=== PATIENT | male | born 1980 | race Caucasian/White ===

== ENCOUNTER 2022-12-23 18:26 | Emergency (ER) | payer SELFPAY ==
--- NOTE | 2022-12-23 20:41 | EDPHYS ---
Physician Documentation [facility] Name: Ollie Cordero II Age: 42 yrs Sex: Male : 1980 Arrival Date: 12/23/2022 Time: 18:26 Bed 12 Private MD: ED Physician Zeb Camacho HPI: 12/23 20:20 This 42 yrs old Male presents to ER via Ambulatory with complaints of Flu Symptoms. kb 20:20 The patient or guardian reports cough, that is intermittent, described as moderate, flu kb symptoms, low-grade fever, myalgias. Onset: The symptoms/episode began/occurred 3 day(s) ago. Severity of symptoms: At their worst the symptoms were mild, in the emergency department the symptoms are unchanged. Modifying factors: The symptoms are alleviated by nothing, the symptoms are aggravated by nothing. Associated signs and symptoms: Pertinent positives: rhinorrhea, sore throat, Pertinent negatives: chest pain, diarrhea, ear ache, fever, nausea, vomiting. The patient has not experienced similar symptoms in the past. The patient has not recently seen a physician. Historical: - Allergies: 18:37 PENICILLINS; ap3 - PMHx: 18:37 hep C; chronic pancreatitis; ap3 - Immunization history:: Client reports having NOT received the Covid vaccine. - Social history:: Smoking status: Patient reports use of chewing tobacco. Patient uses alcohol, occasionally. ROS: 20:19 Abdomen/GI: Negative for abdominal pain, nausea, vomiting, diarrhea, and constipation. kb 20:19 Constitutional: Positive for body aches, chills, fatigue, malaise. 20:19 ENT: Positive for rhinorrhea, sinus congestion, sore throat. 20:19 Respiratory: Positive for cough. 20:19 Neuro: Positive for headache. 20:19 All other systems are negative. Exam: 20:19 Constitutional: This is a well developed, well nourished patient who is awake, alert, kb and in no acute distress. Head/Face: Normocephalic, atraumatic. ENT: Moist Mucous membranes Cardiovascular: Regular rate and rhythm with a normal S1 and S2. No gallops, murmurs, or rubs. No pulse deficits. Respiratory: Respirations even and unlabored. No increased work of breathing. Talking in full sentences Abdomen/GI: Soft, non-tender. No distention Skin: Warm, dry with normal turgor. Normal color. MS/ Extremity: Pulses equal, no cyanosis. Neurovascular intact. Full, normal range of motion. Neuro: Awake and alert, GCS 15, oriented to person, place, time, and situation. Moves all extremities. Normal gait. Vital Signs: 18:36 BP 136 / 92; Pulse 92; Resp 18; Temp 97.9; Pulse Ox 97% ; Weight 90.72 kg; Pain 9/10; ap3 20:48 BP 128 / 71; Pulse 88; Resp 16; Pulse Ox 100% on R/A; mb9 18:36 Pain Scale: Adult ap3 MDM: 18:30 Patient medically screened. kb 20:19 Differential Diagnosis: Viral Syndrome Pneumonia Other flu, covid, uri, strep. Data kb reviewed: vital signs, nurses notes. Test considered but Not performed: X-ray: chest x-ray considered, but lungs are clear bilaterally, resp even and unlabore.. Counseling: I had a detailed discussion with the patient and/or guardian regarding: the historical points, exam findings, and any diagnostic results supporting the discharge/admit diagnosis, lab results, the need for outpatient follow up, a family practitioner, to return to the emergency department if symptoms worsen or persist or if there are any questions or concerns that arise at home. 12/23 18:35 Order name: Flu; Complete Time: 20:45 kb 12/23 18:35 Order name: SARS-COV-2 RT PCR; Complete Time: 20:45 kb 12/23 18:35 Order name: Strep 12/23 19:48 Order name: Throat Culture EDMS Administered Medications: No medications were administered Disposition: 20:46 Co-signature as Attending Physician, Zeb NICK was immediately available on-site ms3 in the Emergency Department for consultation in the care of the patient. Disposition Summary: 12/23/22 20:41 Discharge Ordered Location: Home kb Condition: Stable kb Diagnosis - SARS-associated coronavirus as the cause of diseases classified elsewhere kb Followup: kb - With: Emergency Department - When: As needed - Reason: Worsening of condition Followup: kb - With: Private Physician - When: 2 - 3 days - Reason: Recheck today's complaints, Continuance of care, Re-evaluation by your physician Discharge Instructions: - COVID-19 kb - Viral Illness, Adult kb - Discharge Summary Sheet mb9 Forms: - Medication Reconciliation Form kb - Thank You Letter kb - Antibiotic Education kb - Prescription Opioid Use kb - Patient Portal Instructions kb - Leadership Thank You Letter kb - Work release form mb9 Prescriptions: - albuterol sulfate 90 mcg/actuation Inhalation HFA Aerosol Inhaler - inhale 2 puff by INHALATION route every 4 to 6 hours As needed; 1 unit; kb Refills: 0, Product Selection Permitted Signatures: Dispatcher [employer] EDEusebia Salinas FNP-C FNP-Ckb Prokisch, Amanda, RN RN ap3 Zbe Camacho DO DO ms3 Corrections: (The following items were deleted from the chart) 18:38 18:37 Allergies: No Known Allergies; ap3 ap3
--- NOTE | 2022-12-23 20:41 | ER ---
Nurse's Notes [facility] Name: Ollie Cordero II Age: 42 yrs Sex: Male : 1980 Arrival Date: 12/23/2022 Time: 18:26 Bed 12 Private MD: Diagnosis: SARS-associated coronavirus as the cause of diseases classified elsewhere Presentation: 12/23 18:36 Chief complaint: Patient states: patient states he started having throat pain, chest ap3 pain, body aches and a cough approx 3 days ago after being exposed to COVID. Coronavirus screen: Client presents with at least one sign or symptom that may indicate coronavirus-19. Ebola Screen: No symptoms or risks identified at this time. Initial Sepsis Screen: Does the patient meet any 2 criteria? No. Patient's initial sepsis screen is negative. Does the patient have a suspected source of infection? No. Patient's initial sepsis screen is negative. Risk Assessment: Do you want to hurt yourself or someone else? Patient reports no desire to harm self or others. Onset of symptoms was December 20, 2022. 18:36 Method Of Arrival: Ambulatory ap3 18:36 Acuity: KELY 4 ap3 Triage Assessment: 18:38 General: Appears ill, Behavior is cooperative, appropriate for age. Pain: Complains of ap3 pain in generalized body aches Pain currently is 9 out of 10 on a pain scale. Neuro: Level of Consciousness is awake, alert, obeys commands, Oriented to person, place, time, situation. Cardiovascular: Patient's skin is warm and dry. Respiratory: Reports cough that is Airway is patent Respiratory effort is even, unlabored, Respiratory pattern is regular, symmetrical. Historical: - Allergies: 18:37 PENICILLINS; ap3 - PMHx: 18:37 hep C; chronic pancreatitis; ap3 - Immunization history:: Client reports having NOT received the Covid vaccine. - Social history:: Smoking status: Patient reports use of chewing tobacco. Patient uses alcohol, occasionally. Screenin:31 [facility] ED Fall Risk Assessment (Adult) History of falling in the last 3 months, mb9 including since admission No falls in past 3 months (0 pts) Confusion or Disorientation No (0 pts) Intoxicated or Sedated No (0 pts) Impaired Gait No (0 pts) Mobility Assist Device Used No (0 pt) Altered Elimination No (0 pt) Score/Fall Risk Level 0 - 2 = Low Risk Oriented to surroundings, Maintained a safe environment, Educated pt \T\ family on fall prevention, incl call for assistance when getting out of bed. Abuse screen: Denies threats or abuse. Nutritional screening: No deficits noted. Tuberculosis screening: No symptoms or risk factors identified. Assessment: 19:05 Reassessment: see triage assessment. mb9 20:07 Reassessment: No changes from previously documented assessment. Patient and/or family mb9 updated on plan of care and expected duration. Pain level reassessed. Patient is alert, oriented x 3, equal unlabored respirations, skin warm/dry/pink. Vital Signs: 18:36 BP 136 / 92; Pulse 92; Resp 18; Temp 97.9; Pulse Ox 97% ; Weight 90.72 kg; Pain 9/10; ap3 20:48 BP 128 / 71; Pulse 88; Resp 16; Pulse Ox 100% on R/A; mb9 18:36 Pain Scale: Adult ap3 ED Course: 18:29 Patient arrived in ED. rg4 18:30 Eusebia Mott FNP-C is [facility]. kb 18:30 Zeb Camacho DO is Attending Physician. kb 18:30 Hilary Acosta, MAYTE is Primary Nurse. mb9 18:30 Arm band placed on. mb9 18:31 Bed in low position. Call light in reach. Side rails up X 1. Client placed on mb9 continuous cardiac and pulse oximetry monitoring. NIBP monitoring applied. 18:37 Triage completed. ap3 19:05 Strep Sent. mb9 19:05 SARS-COV-2 RT PCR Sent. mb9 19:05 Flu Sent. mb9 19:05 No provider procedures requiring assistance completed. mb9 20:41 Notified Nurse Practitioner and/or Physician [employer] of a critical lab result(s), mb9 positive COVID test. 20:48 Patient did not have IV access during this emergency room visit. mb9 Administered Medications: No medications were administered Medication: 18:31 VIS not applicable for this client. mb9 Outcome: 20:41 Discharge ordered by . kb 20:48 Discharged to home ambulatory. mb9 20:48 Condition: stable 20:48 Discharge instructions given to patient, Instructed on discharge instructions, follow up and referral plans. Demonstrated understanding of instructions, follow-up care, medications, Prescriptions given X 1. 20:51 Patient left the ED. mb9 Signatures: Eusebia Mott FNP-C FNP-Ckb Garcia, Rubi rg4 Leonila Barrera RN RN ap3 Hilary Acosta RN RN mb9 Corrections: (The following items were deleted from the chart) 18:38 18:37 Allergies: No Known Allergies; ap3 ap3
[2022-12-23 21:14] VITALS: TEMP 97.9
[2022-12-23 21:15] VITALS: BP 128/71; O2SAT 100
== END 2022-12-23 20:51 | disposition home or self-care (01) ==
LOC: ER 18:26
DX: U07.1 COVID-19 (principal); F17.220 Nicotine dependence, chewing tobacco, uncomplicated; Z88.0 Allergy status to penicillin
CPT/HCPCS: 87070; 87081; 87635; 87804; 99283

== ENCOUNTER 2023-02-23 17:45 | Emergency (ER) | payer SELFPAY ==
--- OUTSIDE RECORDS SUMMARY | 2023-02-23 17:47 | XMS REPORT | Continuity of Care Document ---
:1980 Author Organization [facility] t Address [address] [place] [address] [address] [place] [address] Care Team Providers Name Role Phone PCP, PATIENT DOES NOT HAVE A Primary Care Physician Unavaila CARYN Conway Attending Clinician Unavailable CARYN RIBEIRO Attending Clinician Unavailable CARYN RIBEIRO Admitting Clinician Unavailable Payers Payer Name Policy Type Policy Number Effective Date Expiration Date S shonda [employer] [id number] 2022 OUT OF NETWORK 00:00:00 Problems This patient has no known problems. Allergies, Adverse Reactions, Alerts Allergy Allergy Status Severity Reaction(s) Onset Inactive Treating Comm ents Source Name Type Date Date Clinician Penicill Propensi Active Hives Univer s in ty to 8-16 ity of adverse 00:00: [place] reaction 00 [facility] Branch PENICILL DRUG Active Hives Univers IN INGREDI 8-16 ity of 00:00: [place] 00 [facility] NO KNOWN Drug Active Univers ALLERGIE Class ity of [facility] Social History Social Habit Start Date Stop Date Quantity Comments Source Gender identity [facility] y [facility] Sexual orientation [facility] Sex Assigned At [birth year] [facility] Medical Branch Smoking Status Start Date Stop Date Source Tobacco smoking consumption Univ [facility] unknown Branch Medications Ordered Filled Start Stop Current Ordering Indication Dosage Frequency Signature Comments Components Source Medication Medication Date Date Medication? Clinician (SIG) Name Name traZODone Yes 200mg 200 mg, Univ ers (DESYREL) 8-17 Oral, QHS, ity of tablet 200 02:00: First dose [place] mg 00 on Thu Medical 12/24/22 at Branch 2100, Until Discontinu ed, Routine dexamethaso No 10mg 10 mg, Uni vers ne sod phos 12-25 Slow IV ity of PF 00:00: 01:15 Push, [place] injection 00 :00 ONCE, 1 Medical 10 mg dose, On Branch Thu12/24/22 at 1900, 1 mL NaCl 0.9% 2022- No 1000mL at 999 Uni vers (NS) bolus 12-24 mL/hr, ity of infusion 22:45: 00:02 1,000 mL, Nuno as 1,000 mL 00 :00 IV Medical Infusion, [place] ONCE, 1 dose, On Thu12/24/22 at 1745, YAKOV ondansetron 2022- No 4mg 4 mg, Slow Univers (ZOFRAN 12-24 IV Push, ity of (PF)) 22:45: 22:34 ONCE, On [place] injection 4 00 :00 Wed Medical mg 12/24/22 at Branch 1745, For 1 dose
Do ses of ondansetro n 16 mg and above need to be administer ed via IV piggyback. For Dose >=24mg ECG monitoring is advisable.
ketorolac 2022- No 15mg 15 mg, Unive rs (TORADOL) 12-24 Slow IV ity of injection 22:45: 22:33 Push, [place] 15 mg 00 :00 ONCE, 1 Medical dose, On Branch Thu12/24/22 at 1745, Routine ipratropium 2022- No 3mL 3 mL, Univ ers -albuteroL 12-24 Inhalation it y of (DUONEB) 22:45: 22:28 , ONCE, 1 Nuno as 0.5 mg-3 00 :00 dose, On Medical mg(2.5 mg Thu base)/3 mL 12/24/22 at nebulizer 1745, solution 3 Routine mL naproxen Yes [id number] 500mg Take 1 U nivers 500 mg EC 12-24 tablet by ity o f tablet 00:00: mouth in [place] [id number] the Medical morning Branch and 1 tablet in the evening. Take with meals. ondansetron Yes [id number] 4mg Take 1 Univers 4 mg 8-16 tablet by ity of disintegrat 00:00: mouth [place] ing tablet 00 every 8 Medica l (eight) Branch hours as needed for Nausea and Vomiting (N/V). traZODone 2022- Yes [id number] 200mg Take 2 Univers 100 mg 8-16 08-20 tablets by ity of tablet 00:00: 04:59 mouth at [place] 00 :00 bedtime Medical for 3 Branch days. Vital Signs Vital Name Observation Time Observation Value Comments Source Systolic blood 2022-12-25 00:00:00 141 mm[Hg] [facility] Diastolic blood 2022-12-25 00:00:00 98 mm[Hg] [facility] Heart rate 2022-12-25 00:00:00 88 /min [facility] Respiratory rate 2022-12-25 00:00:00 14 /min [facility] Oxygen saturation in 2022-12-25 00:00:00 99 /min [facility] Arterial blood by [facility] Pulse oximetry [place] Body temperature 2022-12-24 21:21:00 36.72 [facility] Body weight 2022-12-24 21:21:00 90.719 kg [facility] Procedures Procedure Date / Time Performed Performing Clinician Sourc e EKG-12 LEAD 2022-12-25 00:38:43 Jarred Siddiqui [facility] TROPONIN I 2022-12-24 22:35:00 Jarred Siddiqui [facility] COMP. METABOLIC PANEL 2022-12-24 22:35:00 Jarred Siddiqui [facility] ([id number]) [facility] CBC WITH DIFF 2022-12-24 22:35:00 Jarred Siddiqui [facility] D-DIMER 2022-12-24 22:35:00 Jarred Siddiqui [facility] XR CHEST 2 VW 2022-12-24 21:57:36 Caryn Ribeiro [facility] CONSENT/REFUSAL FOR 2022-12-24 21:16:48 Doctor Unassigned, No Un [facility] DIAGNOSIS AND Name Medical Branch TREATMENT Encounters Start End Encounter Admission Attending Care Care Encounter Source Date/Time Date/Time Type Type Clinicians Facility Department ID 2022-12-24 2022-12-24 Emergency X CARYN RIBEIRO [facility] ERT [id number] Univers 16:22:00 20:23:00 CARYN RIBEIRO of [facility] 2022-12-24 2022-12-24 Emergency Gema, TRAUMA [id number] Univers 16:22:00 20:23:00 Caryn ESTELLINE [id number] it y of [id number] [place] [id number] [address] Results Test Description Test Time Test Comments Results Result Comments Source D-DIMER 2022-12-24 23:25:50 Test Item Value Reference Range Interpretation Comme nts D-DIMER (test code = 0.29 See_Comment [Autom ated message] The [id number]) system which ge nerated this result tra nsmitted reference range : <0.50 ?g/mL (FEU). Th e reference range was not used to interpr et this result as normal/abnormal . REBECCA (test code = REBECCA) This test may be used in conjunction with a clinical pretest probability (PTP) assessment model to exclude venous thromboembolism (VTE) in patients suspected of deep venous thrombosis (DVT) and pulmonary embolism (PE) A D-Dimer value less than 0.50 ?g/ml (FEU) has a negative predicative value of 96 to 100% (95% CI)and 97 to 100% (95% CI) as an aid in the diagnosis of deep vein thrombosis (DVT) and pulmonary embolism when there is low or moderate pretest probability of PE or DVT. D-Dimer values are expressed in initial fibrinogen equivalent units (FEU)" The assay results should be used with other information, including the clinical context, in forming a diagnosis. Lab Interpretation Normal (test code = 86297-5) [id number]23:28 Test Item Value Reference Range Interpretation Comments TROPONIN I (test code = 0.004 ng/mL <=0.034 [id number]) REBECCA (test code = REBECCA) Reference (Normal) Range (defined by the 99th percentile reference limit): <= 0.034 ng/mL Note: Cardiac troponin begins to rise 3-4 hours after the onset of ischemia. Repeat in 4-6 hours if the sample was drawn within 3-4 hours of the onset of the symptom and found normal. Diagnosis of myocardial injury is made with acute changes in cTn concentrations with at least one serial sample above the 99th percentile upper reference limit (URL), taken together with the patient's clinical presentation. Biotin has been reported to cause a negative bias, interpret results relative to patient's use of biotin. Lab Interpretation Normal (test code = 70082-0) [facility]. METABOLIC PANEL ([id number])2022-12-24 23:19:26 Test Item Value Reference Range Interpretation Comments NA (test code = 140 mmol/L 135-145 8298331622) K (test code = 4.3 mmol/L 3.5-5.0 4009018233) CL (test code = 101 mmol/L 98-108 6100531469) CO2 TOTAL (test code = 24 mmol/L 23-31 2391330181) AGAP (test code = 15 2-16 4454629529) BUN (test code = 12 mg/dL 7-23 2608273700) GLUCOSE (test code = 98 mg/dL 70-110 7695850066) CREATININE (test code = 0.91 mg/dL 0.60-1.25 6137516859) TOTAL BILI (test code = 0.1-1.1 L 8551722787) CALCIUM (test code = 9.6 mg/dL 8.6-10.6 2026620162) T PROTEIN (test code = 7.4 g/dL 6.3-8.2 7236082517) ALBUMIN (test code = 4.4 g/dL 3.5-5.0 7662596926) ALK PHOS (test code = 58 U/L 34-122 9637669706) ALTv (test code = 57 U/L 5-50 H 1742-6) AST(SGOT) (test code = 35 U/L 13-40 7872626692) eGFR (test code = 92.3 mL/min/1.73m2 1350534626) REBECCA (test code = REBECCA) Association of Glomerular Filtration Rate (GFR) and Staging of Kidney Disease* + --+ --+ ------+| GFR (mL/min/1.73 m2) ?| With Kidney Damage ?| ?Without Kidney Damage+ --------+ --------+ +| ?>90 ?| ?Stage one ?| ? Normal ?+ ---+ ---+ -------+| ?60-89 ?| ?Stage two ?| ? Decreased GFR ? + --+ --+ ------+| ?30-59 ?| ?Stage three ?| ? Stage three ? + --+ --+ ------+| ?15-29 ?| ?Stage four ? | ? Stage four ?+ ---+ ---+ -------+| ?<15 (or dialysis) ? ?| ?Stage five ? | ? Stage five ?+ ---+ ---+ -------+ *Each stage assumes the associated GFR level has been in effect for at least three months. ?Stages 1 to 5, with or without kidney disease, indicate chronic kidney disease. Notes: Determination of stages one and two (with eGFR >59mL/min/1.73 m2) requires estimation of kidney damage for at least three months as defined by structural or functional abnormalities of the kidney, manifested by either:Pathological abnormalities or Markers of kidney damage (including abnormalities in the composition of the blood or urine or abnormalities in imaging tests). Lab Interpretation Abnormal (test code = 62570-9) [facility] WITH [id number] 22:52:46 Test Item Value Reference Range Interpretation Comments WBC (test code = 5.06 See_Comment [Automated 4818-2) message] The sy stem which generated this result transmitted reference range : 4.20 - 10.70 10*3/?L. The reference range was not used to interpret this result as normal/abnormal . RBC (test code = 5.02 See_Comment [Automated 391-4) message] The sy stem which generated this result transmitted reference range : 4.26 - 5.52 10*6/?L. The reference range was not used to interpret this result as normal/abnormal . HGB (test code = 15.9 g/dL 12.2-16.4 718-7) HCT (test code = 45.4 % 38.4-49.3 4544-3) MCV (test code = 90.4 fL 81.7-95.6 787-2) MCH (test code = 31.7 pg 26.1-32.7 785-6) MCHC (test code = 35.0 g/dL 31.2-35.0 786-4) RDW-SD (test code = 42.5 fL 38.5-51.6 91666-1) RDW-CV (test code = 12.9 % 12.1-15.4 788-0) PLT (test code = 275 See_Comment [Automated 777-3) message] The sy stem which generated this result transmitted reference range : 150 - 328 10*3/ ?L. The reference r sonia was not used to interpret this result as normal/abnormal . MPV (test code = 8.3 fL 9.8-13.0 L 30913-3) NRBC/100 WBC (test 0.0 See_Comment [Automat ed code = 1227272510) message] The system which generated this result transmitted reference range : 0.0 - 10.0 /100 WBCs. The refer ence range was not u sed to interpret th is result as normal/abnormal . NRBC x10^3 (test code See_Comment [Auto mated = [id number]) message] The s ystem which generated this result transmitted reference range : 10*3/?L. The reference range was not used to interpret this result as normal/abnormal . GRAN MAT (NEUT) % 63.8 % (test code = 770-8) IMM GRAN % (test code 0.40 % = 6391443528) LYMPH % (test code = 23.5 % 736-9) MONO % (test code = 10.5 % 5905-5) EOS % (test code = 1.0 % 713-8) BASO % (test code = 0.8 % 706-2) GRAN MAT x10^3(ANC) 3.23 10*3/uL 1.99-6.95 (test code = 2313904483) IMM GRAN x10^3 (test 0.00-0.06 code = 2167656614) LYMPH x10^3 (test code 1.19 10*3/uL 1.09-3.23 = 731-0) MONO x10^3 (test code 0.53 10*3/uL 0.36-1.02 = 742-7) EOS x10^3 (test code = 0.05 10*3/uL 0.06-0.53 L 711-2) BASO x10^3 (test code 0.04 10*3/uL 0.01-0.09 = 704-7) Lab Interpretation Abnormal (test code = 12606-0) [facility]
--- NOTE | 2023-02-23 18:21 | RAD REPORT ---
EXAM DESCRIPTION: CT - Head Brain Wo Cont - 02/23/2023 6:05 pm CLINICAL HISTORY: TRAUMA Trauma, head injury COMPARISON: Head C Spine Mpr Wo Con dated 02/19/2023 TECHNIQUE: All CT scans are performed using dose optimization technique as appropriate and may inclu de automated exposure control or mA/KV adjustment according to patient size. FINDINGS: There is subtle hyperdensity seen in the right temporal horn of the right lateral ventricl e. This likely represents a small amount of intraventricular hemorrhage.Elsewhere there is no extra-a xial hemorrhage, hydrocephalus or midline shift.No areas of brain edema seen. Small amount of mucosal thickening is seen the anterior ethmoid air cells. The paranasal sinuses and mastoids are otherwise clear. Partially empty sella configuration noted. The calvarium is intact. IMPRESSION: Subtle hyperdensity noted in the right temporal horn of the right lateral ventricle like ly represent small volume of hemorrhage.
[2023-02-23 18:50] LABS: Absolute Lymphocytes (CBC) 1.7 K/uL (0.7-4.9); Hematocrit 49.1 % (39.6-49.0); Lymphocytes % 17.7 % (15.3-44.8); MCV 92.8 fL (80-100); MPV 6.3 fL (7.6-11.3); Platelets 404 thou/uL (152-406); RBC Red Blood Cell Count 5.29 M/uL (4.33-5.43)
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
[2023-02-23 19:08] LABS: Potassium 4.1 mEq/L (3.5-5.1)
[2023-02-23] MEDS ORDERED: ONDANSETRON 4 MG/2 ML VIAL ONE (20:29)
[2023-02-23] MEDS ORDERED: MORPHINE 4 MG/ML SYR ONE (20:29)
[2023-02-23 21:03] VITALS: BP 134/87; O2SAT 98
== END 2023-02-23 20:36 | disposition short-term general hospital (02) ==
LOC: ER 17:45
DX: I61.5 Nontraumatic intracerebral hemorrhage, intraventricular (principal); K08.11 Complete loss of teeth due to trauma; S01.511A Laceration without foreign body of lip, initial encounter; Y04.2XXA Assault by strike against or bumped into by another person, initial encounter; Z88.0 Allergy status to penicillin
CPT/HCPCS: 36415; 70450; 80048; 82077; 85025; 96374; 96375; 99284; J2405

== ENCOUNTER 2024-01-26 17:17 | Emergency (ER) | payer OTHER ==
--- NOTE | 2024-01-26 17:57 | ER ---
Nurse's Notes [facility] Name: Ollie Cordero II Age: 44 yrs Sex: Male : 1980 Arrival Date: 01/26/2024 Time: 17:17 Bed 11 Private MD: Diagnosis: Zoster without complications Presentation: 01/25 17:49 Chief complaint: Patient states: rash to lower abd region since 2 pm today, feels like iw shingles , has had previous flare up in past. Coronavirus screen: At this time, the client does not indicate any symptoms associated with coronavirus-19. Ebola Screen: No symptoms or risks identified at this time. Initial Sepsis Screen: Does the patient meet any 2 criteria? No. Patient's initial sepsis screen is negative. Does the patient have a suspected source of infection? No. Patient's initial sepsis screen is negative. Risk Assessment: Do you want to hurt yourself or someone else? Patient reports no desire to harm self or others. Onset of symptoms was January 26, 2024. 17:49 Method Of Arrival: Ambulatory iw 17:49 Acuity: KELY 4 iw Historical: - Allergies: 17:50 PENICILLINS; iw - Home Meds: 17:50 gabapentin oral [Active]; Trazodone Oral daily [Active]; iw - PMHx: 17:50 Chronic Pancreatitis; HEP C; iw - PSHx: 17:50 back; knee; hernia; iw - Immunization history:: Adult Immunizations not up to date. - Infectious Disease History:: Denies. - Social history:: Smoking status: Patient reports the use of cigarette tobacco products, denies chronic smoking, but will smoke occasionally, chewing tobacco. Screenin:14 [facility] ED Fall Risk Assessment (Adult) History of falling in the last 3 months, me1 including since admission No falls in past 3 months (0 pts) Confusion or Disorientation No (0 pts) Intoxicated or Sedated No (0 pts) Impaired Gait No (0 pts) Mobility Assist Device Used No (0 pt) Altered Elimination No (0 pt) Score/Fall Risk Level 0 - 2 = Low Risk Maintained a safe environment, Provided non-skid footwear, Hourly rounding (assess needs \T\ fall precautionary measures) done. Abuse screen: Denies threats or abuse. Nutritional screening: No deficits noted. Tuberculosis screening: No symptoms or risk factors identified. Assessment: 18:14 General: Appears uncomfortable, well developed, well nourished, Behavior is calm, me1 cooperative, appropriate for age, Reports rash to lower abd region since 2 pm today, feels like shingles , has had previous flare up in past. Pain: Complains of pain in left lower quadrant Pain does not radiate. Pain currently is 6 out of 10 on a pain scale. Quality of pain is described as burning, stinging, Pain began gradually, Is continuous. Neuro: Level of Consciousness is awake, alert, obeys commands, Oriented to person, place, time, situation, Appropriate for age. Cardiovascular: Patient's skin is warm and dry. Respiratory: Airway is patent Respiratory effort is even, unlabored, Respiratory pattern is regular, symmetrical. GI: No signs and/or symptoms were reported involving the gastrointestinal system. : No signs and/or symptoms were reported regarding the genitourinary system. EENT: No signs and/or symptoms were reported regarding the EENT system. Derm: Skin is intact, is healthy with good turgor, Skin is pink, warm \T\ dry. Derm: Skin Rash noted that is vesicular, on abdomen and left lower quadrant. Musculoskeletal: No signs and/or symptoms reported regarding the musculoskeletal system. Vital Signs: 17:49 BP 146 / 100; Pulse 85; Resp 16; Temp 98.1; Pulse Ox 99% ; Pain 8/10; iw 18:17 BP 139 / 94; Pulse 86; Resp 16; Temp 98.2; Pulse Ox 99% ; me1 17:49 Pain Scale: Adult iw ED Course: 17:22 Patient arrived in ED. mg5 17:22 Eusebia Mott FNP-C [facility]. kb 17:22 Handy Spears MD is Attending Physician. kb 17:50 Triage completed. iw 18:03 Luz Narayan, MAYTE is Primary Nurse. me1 18:14 Patient has correct armband on for positive identification. Bed in low position. Call me1 light in reach. Side rails up X2. Provided Education on: POC. Verbalized understanding. . 18:14 No provider procedures requiring assistance completed. Patient did not have IV access me1 during this emergency room visit. 18:23 Arm band placed on Patient placed. me1 Administered Medications: 18:13 Drug: Ketorolac IM 30 mg IM once Route: IM; Site: right gluteus; me1 18:17 Follow up: Response: No adverse reaction me1 18:13 Drug: [place] PO 10 mg-325 mg 1 tabs PO once Route: PO; me1 18:17 Follow up: Response: No adverse reaction me1 Medication: 18:14 VIS not applicable for this client. me1 Outcome: 17:57 Discharge ordered by . curtis 18:23 Discharged to home ambulatory, me1 18:23 Condition: stable 18:23 Discharge instructions given to patient, Instructed on discharge instructions, follow up and referral plans. medication usage, Demonstrated understanding of instructions, follow-up care, medications, Prescriptions given X 2, 18:23 Patient left the ED. me1 Signatures: Eusebia Mott, SUPERVISOR TOY ASSEMBLY-C SUPERVISOR TOY ASSEMBLY-Ckb Sissy Duron RN RN iw Luz Narayan RN RN me1 Luisa Blue mg5 Corrections: (The following items were deleted from the chart) 18:06 17:49 Chief complaint: Patient states: rash to lower abd region since 2 pm today, feels me1 like shingles , has had previous flare up in past iw 18:14 17:49 Chief complaint: Patient states: rash to lower abd region since 2 pm today, feels me1 like shingles , has had previous flare up in past me1
--- NOTE | 2024-01-26 17:57 | EDPHYS ---
Physician Documentation [facility] Name: Ollie Cordero II Age: 44 yrs Sex: Male : 1980 Arrival Date: 01/26/2024 Time: 17:17 Bed 11 Private MD: Handy Hunt HPI: 01/25 17:53 This 44 yrs old Male presents to ER via Ambulatory with complaints of Rash. kb 17:53 Pt is a 44 year old male who presents for rash that started at 1400 today. States it kb looks and feels exactly the same as previous shingles. Reports pain, burning sensation. Denies fever. Historical: - Allergies: 17:50 PENICILLINS; iw - Home Meds: 17:50 gabapentin oral [Active]; Trazodone Oral daily [Active]; iw - PMHx: 17:50 Chronic Pancreatitis; HEP C; iw - PSHx: 17:50 back; knee; hernia; iw - Immunization history:: Adult Immunizations not up to date. - Infectious Disease History:: Denies. - Social history:: Smoking status: Patient reports the use of cigarette tobacco products, denies chronic smoking, but will smoke occasionally, chewing tobacco. ROS: 17:53 Constitutional: As per HPI kb Exam: 17:53 Constitutional: This is a well developed, well nourished patient who is awake, alert, kb and in no acute distress. Head/Face: Normocephalic, atraumatic. ENT: Moist Mucous membranes Cardiovascular: Regular rate Respiratory: Respirations even and unlabored. No increased work of breathing. Talking in full sentences Abdomen/GI: Soft, non-tender. No distention MS/ Extremity: Pulses equal, no cyanosis. Neurovascular intact. Full, normal range of motion. Neuro: Awake and alert, GCS 15, oriented to person, place, time, and situation. Moves all extremities. Normal gait. 17:53 Skin: consistent with zoster, on the left lower quadrant, Vital Signs: 17:49 BP 146 / 100; Pulse 85; Resp 16; Temp 98.1; Pulse Ox 99% ; Pain 8/10; iw 18:17 BP 139 / 94; Pulse 86; Resp 16; Temp 98.2; Pulse Ox 99% ; me1 17:49 Pain Scale: Adult iw MDM: 17:22 Patient medically screened. kb 17:53 Differential diagnosis: allergic reaction, parasite infection, zoster. Data reviewed: kb vital signs, nurses notes. Counseling: I had a detailed discussion with the patient and/or guardian regarding the historical points, exam findings, and any diagnostic results supporting the discharge/admit diagnosis, the need for outpatient follow up, a family practitioner, to return to the emergency department if symptoms worsen or persist or if there are any questions or concerns that arise at home. Administered Medications: 18:13 Drug: Ketorolac IM 30 mg IM once Route: IM; Site: right gluteus; me1 18:17 Follow up: Response: No adverse reaction me1 18:13 Drug: [place] PO 10 mg-325 mg 1 tabs PO once Route: PO; me1 18:17 Follow up: Response: No adverse reaction me1 Disposition Summary: 01/26/24 17:57 Discharge Ordered Notes: Location: Home kb Condition: Stable kb Diagnosis - Zoster without complications kb Followup: kb - With: Emergency Department - When: As needed - Reason: Worsening of condition Followup: kb - With: Private Physician - When: 2 - 3 days - Reason: Recheck today's complaints, Continuance of care, Re-evaluation by your physician Discharge Instructions: - Discharge Summary Sheet kb - Neuropathic Pain kb - Shingles, [id number] kb Forms: - Medication Reconciliation Form kb - Antibiotic Education kb - Prescription Opioid Use kb - Patient Portal Instructions kb - Leadership Thank You Letter kb Prescriptions: - Valtrex 1 gram Oral tablet - take 1 tablet ORAL route every 8 hours for 7 days; 21 tablet; Refills: 0, kb Product Selection Permitted - Diclofenac Sodium 75 mg Oral tablet, delayed release (enteric coated) - take 1 tablet ORAL route 2 times per day As needed; 30 tablet; Refills: 0, kb Product Selection Permitted Signatures: Eusebia Mott, ANITA MAGUIRE-Sissy Levin, RN RN iw Luz Narayan RN RN me1
[2024-01-26] MEDS ORDERED: HYDROCODONE/APAP 10/325 TAB ONE (18:07)
[2024-01-26] MEDS ORDERED: KETOROLAC 30 MG/ML INJ ONE (18:07)
[2024-01-26 18:29] VITALS: O2SAT 99
[2024-01-26 18:31] VITALS: BP 139/94; TEMP 98.2
== END 2024-01-26 18:23 | disposition home or self-care (01) ==
LOC: ER 17:17
DX: B02.9 Zoster without complications (principal); F17.210 Nicotine dependence, cigarettes, uncomplicated
CPT/HCPCS: 96372; 99284